=== PATIENT | male | born 1990 | race Hispanic/Latino ===

== ENCOUNTER 2019-01-18 12:48 | Emergency (ER) | payer OTHER, SELFPAY ==
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
[2019-01-18] MEDS ORDERED: Ketorolac Tromethamine 60 MG/2 ML VIAL ONE (16:54)
[2019-01-18] MEDS ORDERED: Ketorolac Tromethamine 30 MG/ML VIAL ONE (16:57)
== END 2019-01-18 17:10 | disposition home or self-care (01) ==
LOC: ERS 12:48
DX: S63.601A Unspecified sprain of right thumb, initial encounter (principal); S00.83XA Contusion of other part of head, initial encounter; V43.52XA Car driver injured in collision with other type car in traffic accident, initial encounter
CPT/HCPCS: 70450; 70486; 96374; J1885